=== PATIENT | female | born 1945 | race Caucasian/White ===

== ENCOUNTER 2017-11-20 16:10 | Emergency (ER) | payer MEDICARE ==
[2017-11-20 16:12] VITALS: BP 145/64; PULSE 71; RESP 14; TEMP 97.8; O2SAT 100
[2017-11-20] MEDS ORDERED: SULF500EC PO (17:06)
[2017-11-20] MEDS ORDERED: TOPA50TA7 PO (17:06)
[2017-11-20] MEDS ORDERED: PAME25CA PO (17:06)
[2017-11-20] MEDS ORDERED: MAGN500T2 PO (17:06)
[2017-11-20] MEDS ORDERED: ESTR0.5T3 PO (17:06)
[2017-11-20] MEDS ORDERED: LEVO.05 PO (17:06)
[2017-11-20] MEDS ORDERED: FOSA70TA PO (17:06)
[2017-11-20] MEDS ORDERED: BIOTCAP PO (17:06)
[2017-11-20] MEDS ORDERED: LISI10TA3 PO (17:06)
[2017-11-20] MEDS ORDERED: OMEP40CA2 (17:06)
[2017-11-20] MEDS ORDERED: NAPR500 PO (17:06)
[2017-11-20] MEDS ORDERED: METR1GEL2 (17:06)
[2017-11-20] MEDS ORDERED: CHLO25TA2 PO (17:06)
[2017-11-20] MEDS ORDERED: FISHCAP4 PO (17:06)
--- NOTE | 2017-11-20 17:15 | RADRPT ---
EXAM DATE/TIME: 11/20/2017 16:41 [facility] COMPARISON: No previous studies available for comparison. INDICATIONS : Left foot pain after fall off step. MEDICAL HISTORY : None. SURGICAL HISTORY : Left ankle ORIF. ENCOUNTER: Initial ACUITY: 1 day PAIN SCORE: 10/10 LOCATION: Left foot, 1st and 2nd digits. FINDINGS: Plate with screws is seen bridging the fracture of the medial or lateral malleolus. Alignment anatom ic. Fracture base of the fifth metatarsals noted. CONCLUSION: Nondisplaced fracture base of the fifth metatarsal. Previous ORIF medial and lateral malleolus. Luis Cadena MD FACR on November 20, 2017 at 17:12 Board Certified Radiologist. This report was verified electronically.
--- NOTE | 2017-11-20 17:30 | PD ---
HPI Chief Complaint: Injury Time Seen by Provider: 17:19 Travel History International Travel<30 days: No Contact w/Intl Traveler<30days: No Traveled to known affect area: No History of Present Illness HPI 71-year-old female presents for evaluation of left foot pain. Prior to arrival the patient reports that she "missed a step" when stepping out of her RV and she fell on the ground. She is complaining of pain to the proximal left fifth metatarsal region of her foot. Pain is aching and worse with movement or palpation. She denies any other injuries and she has no other complaints at this time. PFSH Past Medical History Cardiovascular Problems: Yes Social History Alcohol Use: Yes Tobacco Use: No Allergies-Medications (Allergen,Severity, Reaction): Coded Allergies: meperidine (Verified Allergy, Severe, 11/20/17) promethazine (Verified Allergy, Severe, 11/20/17) camphor (Verified Adverse Reaction, Severe, Nausea/Vomiting, 11/20/17) codeine (Verified Adverse Reaction, Severe, Nausea/Vomiting, 11/20/17) eucalyptus (Verified Adverse Reaction, Severe, Nausea/Vomiting, 11/20/17) menthol (Verified Adverse Reaction, Severe, Nausea/Vomiting, 11/20/17) petrolatum,white (Verified Adverse Reaction, Severe, Nausea/Vomiting, 11/20) turpentine oil (Verified Adverse Reaction, Severe, Nausea/Vomiting, ) Reported Meds & Prescriptions Reported Meds & Active Scripts Active Reported Magnesium Oxide 500 Mg Tab 500 Mg PO DAILY Biotin 5 Mg Cap 5 Mg PO Fish Oil + D3 (Fish Oil-Cholecalciferol) 1,200-1,000 Mg-Unit Cap 1 Cap PO DAILY Fosamax (Alendronate Sodium) 70 Mg Tab 70 Mg PO Q7D Omeprazole 40 Mg Cap 40 Mg DAILY Pamelor (Nortriptyline HCl) 25 Mg Cap 25 Mg PO HS Naprosyn (Naproxen) 500 Mg Tab 500 Mg PO DIRECTED Topamax (Topiramate) 50 Mg Tab 50 Mg PO BID Metrogel (Metronidazole) 1 % Gel..gram. Lisinopril 10 Mg Tab 10 Mg PO DAILY Chlorthalidone 25 Mg Tab 12.5 Mg PO DAILY Azulfidine En-Tabs (Sulfasalazine) 500 Mg Tab 500 Mg PO BID Estrace (Estradiol) 0.5 Mg Tab 0.5 Mg PO EVERY OTHER DAY Synthroid (Levothyroxine Sodium) 50 Mcg Tab 50 Mcg PO DAILY Review of Systems Musculoskeletal: Positive: Pain Skin: Positive Other (denies open wounds) Physical Exam Narrative GENERAL: Well-developed well-nourished female in no acute distress SKIN: Warm and dry. HEAD: Atraumatic. Normocephalic. CARDIOVASCULAR: Regular rate and rhythm. No murmur appreciated. RESPIRATORY: No accessory muscle use. Clear to auscultation. Breath sounds equal bilaterally. MUSCULOSKELETAL: Tender to palpation proximal left fifth metatarsal. No bruising or soft tissue swelling. There is pain with dorsi and plantar flexion of the left foot. NEUROLOGICAL: Awake and alert. No obvious cranial nerve deficits. Motor grossly within normal limits. Normal speech. Data Data Last Documented VS Vital Signs Date Time Temp Pulse Resp B/P (MAP) Pulse Ox O2 Delivery O2 Flow Rate FiO2 11/20/17 16:12 97.8 71 14 145/64 (91) 100 Orders Orders Foot, Complete ([id number]) (11/20/17 ) Ed Discharge Order (11/20/17 17:26) Splint Or Brace Apply/Monitor (11/20/17 17:26) Crutches (11/20/17 17:26) MDM Medical Decision Making Medical Screen Exam Complete: Yes Emergency Medical Condition: Yes Medical Record Reviewed: Yes Differential Diagnosis Foot fracture, contusion, sprain Narrative Course X-ray imaging of the left foot reveals CONCLUSION: Nondisplaced fracture base of the fifth metatarsal. Previous ORIF medial and lateral malleolus. The patient will be placed in a posterior short leg splint and provided crutches. She is from [place], plans on returning home at the end of November. She will be referred to a local transportation engineering technician for follow-up. Diagnosis Primary Impression: Fracture of fifth metatarsal bone of left foot Referrals: Elle Manuel DPM Additional Instructions: Follow-up with a transportation engineering technician such as Dr. Manuel in the next week, call to make an appointment. Nonweightbearing left foot. Do not remove the splint. Tylenol or Motrin for pain. Return for any emergent medical conditions. Med/Other Pt SpecificInfo: Orthopedic Instructions Disposition: 01 DISCHARGE HOME Condition: Stable Sourav Santanay P. PA Nov 20, 2017 17:30
[2017-11-20] MEDS ORDERED: IBUP-232 PO (17:58)
[2017-11-20] MEDS ORDERED: IBUPROFEN 600 MG TAB PO ONE (18:00)
== END 2017-11-20 18:31 | disposition home or self-care (01) ==
LOC: NEPK 16:10
DX: S92.352A Displaced fracture of fifth metatarsal bone, left foot, initial encounter for closed fracture (principal); W10.8XXA Fall (on) (from) other stairs and steps, initial encounter; Z88.5 Allergy status to narcotic agent; Z88.8 Allergy status to other drugs, medicaments and biological substances; Z91.048 Other nonmedicinal substance allergy status
CPT/HCPCS: 29515; 73630; 99283; E0113

== ENCOUNTER 2017-11-23 18:32 | Emergency (ER) | payer MEDICARE ==
[~2017-11-23] VITALS: Ht 167.6 cm; Wt 69.5 kg
[~2017-11-23 18:32] MED LIST: BIOTCAP PO; CHLO25TA2 PO; ESTR0.5T3 PO; FISHCAP4 PO; FOSA70TA PO; IBUP-232 PO; LEVO.05 PO; LISI10TA3 PO; MAGN500T2 PO; METR1GEL2; NAPR500 PO; OMEP40CA2; PAME25CA PO; SULF500EC PO; TOPA50TA7 PO
[2017-11-23 18:36] VITALS: BP 143/69; PULSE 92; RESP 18; TEMP 98.2; O2SAT 99
[2017-11-23] MEDS ORDERED: CALC1TAB87 PO (20:55)
[2017-11-23] MEDS ORDERED: MULTTAB67 PO (20:55)
[2017-11-23] MEDS ORDERED: SULI200T PO (20:55)
[2017-11-23] MEDS ORDERED: ZANA4CAP PO (20:55)
[2017-11-23] MEDS ORDERED: MAGN500T2 PO (20:55)
[2017-11-23] MEDS ORDERED: SODIUM CHLORIDE 0.9% FLUSH 10 ML FLUSH IVF PRN (21:15)
--- NOTE | 2017-11-23 21:29 | PD ---
HPI Chief Complaint: Pain: Acute or Chronic Time Seen by Provider: 21:01 Travel History International Travel<30 days: No Contact w/Intl Traveler<30days: No Traveled to known affect area: No History of Present Illness HPI 71-year-old female with PMH of HTN presents to the ED for evaluation of sudden onset electrical shock type pain radiating into bilateral upper extremities. Patient states that she was looking up at some friends who were on a amusement ride when the pain started. She states that it's been intermittent throughout the course of the day but she can identify no particular exacerbating motions. She endorses history of chronic headaches. On presentation she denies headache , dizziness, neck pain, chest pain, palpitations, shortness of breath, abdominal pain, nausea, vomiting. She endorses fall from her RV a few days ago in which she broke the fifth metatarsal. She states that she landed on her hands and knees and denies any injury to the neck. 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 She states that she had a CT at the time that is unsure of any results. PFSH Past Medical History Arthritis: Yes Cardiovascular Problems: Yes (HTN) Hypertension: Yes Thyroid Disease: Yes Tetanus Vaccination: < 5 Years Influenza Vaccination: Yes ?: Not Past Surgical History Genitourinary Surgery: Yes (vaginal sling) Hysterectomy: Yes Social History Alcohol Use: Yes (Socially) Tobacco Use: No Substance Use: No Allergies-Medications (Allergen,Severity, Reaction): Coded Allergies: meperidine (Verified Allergy, Severe, 11/20/17) promethazine (Verified Allergy, Severe, 11/20/17) camphor (Verified Adverse Reaction, Severe, Nausea/Vomiting, 11/20/17) codeine (Verified Adverse Reaction, Severe, Nausea/Vomiting, 11/20/17) eucalyptus (Verified Adverse Reaction, Severe, Nausea/Vomiting, 11/20/17) menthol (Verified Adverse Reaction, Severe, Nausea/Vomiting, 11/20/17) petrolatum,white (Verified Adverse Reaction, Severe, Nausea/Vomiting, 11/20) turpentine oil (Verified Adverse Reaction, Severe, Nausea/Vomiting, ) Reported Meds & Prescriptions Reported Meds & Active Scripts Active Prednisone 20 Mg Tab 20 Mg PO BID Gabapentin 300 Mg Cap 300 Mg PO BID Ibuprofen 600 Mg Tab 600 Mg PO Q6H PRN Reported Sulindac 200 Mg Tab 200 Mg PO BID Magnesium Oxide 500 Mg Tab 500 Mg PO DAILY Multiple Vitamin 1 Tab 1 Tab PO DAILY Calcium 600 with Vitamin D (Calcium Carbonate-Cholecalciferol) 600-400 mg-Unit Tab 1 Tab PO DAILY Zanaflex (Tizanidine HCl) 4 Mg Cap 4 Mg PO Magnesium Oxide 500 Mg Tab 500 Mg PO DAILY Biotin 5 Mg Cap 5 Mg PO Fish Oil + D3 (Fish Oil-Cholecalciferol) 1,200-1,000 Mg-Unit Cap 1 Cap PO DAILY Fosamax (Alendronate Sodium) 70 Mg Tab 70 Mg PO Q7D Omeprazole 40 Mg Cap 40 Mg DAILY Pamelor (Nortriptyline HCl) 25 Mg Cap 25 Mg PO HS Naprosyn (Naproxen) 500 Mg Tab 500 Mg PO DIRECTED Topamax (Topiramate) 50 Mg Tab 50 Mg PO BID Metrogel (Metronidazole) 1 % Gel..gram. Lisinopril 10 Mg Tab 10 Mg PO DAILY Chlorthalidone 25 Mg Tab 12.5 Mg PO DAILY Azulfidine En-Tabs (Sulfasalazine) 500 Mg Tab 500 Mg PO BID Estrace (Estradiol) 0.5 Mg Tab 0.5 Mg PO EVERY OTHER DAY Synthroid (Levothyroxine Sodium) 50 Mcg Tab 50 Mcg PO DAILY Review of Systems Except as stated in HPI: all other systems reviewed are Neg Physical Exam Narrative GENERAL: Well-nourished, well-developed white female in no acute distress. SKIN: Focused skin assessment warm/dry. HEAD: Normocephalic. EYES: No scleral icterus. No injection or drainage. NECK: Supple, trachea midline. No JVD or lymphadenopathy. Extension and flexion of the neck elicits the same pain she complains of. CARDIOVASCULAR: Regular rate and rhythm without murmurs, gallops, or rubs. RESPIRATORY: Breath sounds equal bilaterally. No accessory muscle use. GASTROINTESTINAL: Abdomen soft, non-tender, nondistended. MUSCULOSKELETAL: No cyanosis, or edema. Equal strength in the bilateral upper extremities. Tinel's test negative. BACK: Nontender without obvious deformity. No CVA tenderness. Data Data Last Documented VS Vital Signs Date Time Temp Pulse Resp B/P (MAP) Pulse Ox O2 Delivery O2 Flow Rate FiO2 2/15/18 22:50 97 18 103/56 (72) 98 Room Air 11/23/17 18:[address] Cerv Spine W/O Contrast (11/23/17 21:01) Basic Metabolic Panel (Bmp) (11/23/17 21:14) Ckmb (Isoenzyme) Profile (11/23/17 21:14) Complete Blood Count With Diff (11/23/17 21:14) Magnesium (Mg) (11/23/17 21:14) Prothrombin Time / Inr (Pt) (11/23/17 21:14) Act Partial Throm Time (Ptt) (11/23/17 21:14) Troponin I (11/23/17 21:14) Chest, Single Ap (11/23/17 21:14) Ecg Monitoring (11/23/17 21:14) Bilateral Bp Monitoring (11/23/17 21:14) Iv Access Insert/Monitor (11/23/17 21:14) Oximetry (11/23/17 21:14) Sodium Chloride 0.9% Flush (Ns Flush) (11/23/17 21:15) Electrocardiogram (11/23/17 20:57) CKMB (11/23/17 21:20) CKMB% (11/23/17 21:20) Radiology Film Requests (11/23/17 ) Gabapentin (Neurontin) (11/23/17 22:45) Prednisone (Deltasone) (11/23/17 22:45) Ed Discharge Order (11/23/17 22:36) Labs Laboratory Tests Test 11/23/17 21:20 White Blood Count 5.8 TH/MM3 Red Blood Count 4.16 MIL/MM3 Hemoglobin 12.6 GM/DL Hematocrit 36.5 % Mean Corpuscular Volume 87.8 FL Mean Corpuscular Hemoglobin 30.3 PG Mean Corpuscular Hemoglobin Concent 34.5 % Red Cell Distribution Width 13.7 % Platelet Count 238 TH/MM3 Mean Platelet Volume 8.0 FL Neutrophils (%) (Auto) 63.8 % Lymphocytes (%) (Auto) 26.7 % Monocytes (%) (Auto) 7.2 % Eosinophils (%) (Auto) 1.5 % Basophils (%) (Auto) 0.8 % Neutrophils # (Auto) 3.7 TH/MM3 Lymphocytes # (Auto) 1.6 TH/MM3 Monocytes # (Auto) 0.4 TH/MM3 Eosinophils # (Auto) 0.1 TH/MM3 Basophils # (Auto) 0.0 TH/MM3 CBC Comment DIFF FINAL Differential Comment Prothrombin Time 10.1 SEC Prothromb Time International Ratio 1.0 RATIO Activated Partial Thromboplast Time 28.5 SEC Blood Urea Nitrogen 22 MG/DL Creatinine 0.97 MG/DL Random Glucose 96 MG/DL Calcium Level 9.4 MG/DL Magnesium Level 1.9 MG/DL Sodium Level 141 MEQ/L Potassium Level 3.4 MEQ/L Chloride Level 105 MEQ/L Carbon Dioxide Level 28.7 MEQ/L Anion Gap 7 MEQ/L Estimat Glomerular Filtration Rate 57 ML/MIN Total Creatine Kinase 171 U/L Creatine Kinase MB 1.9 NG/ML Troponin I LESS THAN 0.02 NG/ML MDM Medical Decision Making Medical Screen Exam Complete: Yes Emergency Medical Condition: Yes Differential Diagnosis Cervical radiculopathy versus muscle strain versus degenerative disc disease versus herniated disc versus less likely cardiac origin versus other Narrative Course 71-year-old female with PMH of HTN presents to the ED for evaluation of sudden onset electrical shock type pain radiating into bilateral upper extremities. Endorses a fall from her RV a few days ago, landing on her hands and knees. 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 No red flag symptoms reported. On exam she has positive midline tenderness of the neck and the same electrical pain is elicited with flexion and extension. Signs and symptoms are suspicious for radiculopathy. 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 I offered the patient pain medications which she declines at this time. EKG with no acute changes. CXR no acute findings. Troponin negative 1. CBC, CMP, coags unremarkable. CT of the cervical spine reveals no acute fracture or subluxation. There is moderate to severe focal canal stenosis at C6/7 secondary to partially calcified disc protrusion and dorsal dural calcifications. I discussed the results of the workup with the patient and her family. She is visiting from [place] and was provided a copy of the CT on CD. She should follow- up with the neurosurgeon on return home. She is prescribed a short course of prednisone and gabapentin, first doses administered in the ED. We discussed reasons to return to the ED. The patient is stable and discharged home. Diagnosis Primary Impression: Cervical radiculopathy at C7 Additional Impression: Cervical radiculopathy at C6 Referrals: Neurosurgeon Patient Instructions: Cervical Radiculopathy (ED), General Instructions Additional Instructions: Rest, hydrate. Return to normal, gentle activities as tolerated. Take prednisone and gabapentin as they're prescribed. Tampax applied to the neck 10:15 minutes at a time may also help to reduce her symptoms. Follow-up with the neurologist as discussed. Return to the ED for worsening symptoms or any urgent or emergent medical condition. Med/Other Pt SpecificInfo: Prescription(s) given Scripts Prednisone (Prednisone) 20 Mg Tab 20 MG PO BID, #10 TAB 0 Refills Prov: Brett Morfin MD 11/23/17 Gabapentin (Gabapentin) 300 Mg Cap 300 MG PO BID, #60 CAP 0 Refills Prov: Brett Morfin MD 11/23/17 Disposition: 01 DISCHARGE HOME Condition: Stable Magali Krishnamurthy Nov 23, 2017 21:29
[2017-11-23 21:46] LABS: AUTOMATED NEUTROPHIL # 3.7 TH/MM3 (1.8-7.7); BASOPHIL % 0.8 % (0.0-2.0); EOSINOPHIL # 0.1 TH/MM3 (0-0.4); EOSINOPHIL % 1.5 % (0.0-4.0); HEMATOCRIT 36.5 % (35.0-46.0); HEMOGLOBIN 12.6 GM/DL (11.6-15.3); LYMPH % 26.7 % (9.0-44.0); LYMPHOCYTE # 1.6 TH/MM3 (1.0-4.8); MEAN CELL VOLUME 87.8 FL (80.0-100.0); MEAN CORPUSCULAR HEMOGLOBIN 30.3 PG (27.0-34.0); MEAN CORPUSCULAR HGB CONC 34.5 % (32.0-36.0); MONO % 7.2 % (0.0-8.0); MONOCYTE # 0.4 TH/MM3 (0-0.9); NEUT % 63.8 % (16.0-70.0); PLATELET COUNT 238 TH/MM3 (150-450); RED BLOOD COUNT 4.16 MIL/MM3 (4.00-5.30); RED CELL DISTRIBUTION WIDTH 13.7 % (11.6-17.2); WHITE BLOOD COUNT 5.8 TH/MM3 (4.0-11.0)
--- NOTE | 2017-11-23 22:01 | RADRPT ---
EXAM DATE/TIME: 11/23/2017 21:38 [facility] COMPARISON: No previous studies available for comparison. INDICATIONS : Bilateral arm pain. Radiculopathy. RADIATION DOSE: 19.56 CTDIvol (mGy) MEDICAL HISTORY : Hypertension. SURGICAL HISTORY : None. ENCOUNTER: Initial ACUITY: 1 day PAIN SCALE: 8/10 LOCATION: Bilateral arms TECHNIQUE: Volumetric scanning of the cervical spine was performed. Multiplanar reconstructions in the sagittal, coronal and oblique axial planes were performed. Using automated exposure control and adjustment o f the mA and/or kV according to patient size, radiation dose was kept as low as reasonably achievable to obtain optimal diagnostic quality images. DICOM format image data is available electronically f or review and comparison. FINDINGS: VERTEBRAE: Normal vertebral body height. ALIGNMENT: No evidence of subluxation. C2-C3: The bony spinal canal is normal in size. No evidence of disc bulge or herniation. The neural forami na are bilaterally patent. C3-C4: The bony spinal canal is normal in size. No evidence of disc bulge or herniation. The neural forami na are bilaterally patent. C4-C5: The bony spinal canal is normal in size. No evidence of disc bulge or herniation. The neural forami na are bilaterally patent. C5-C6: The bony spinal canal is normal in size. No evidence of disc bulge or herniation. The neural forami na are bilaterally patent. C6-C7: Moderate to severe focal canal stenosis at C6-7 secondary to calcified disc protrusion and dorsal can al calcifications. C7-T1: The bony spinal canal is normal in size. No evidence of disc bulge or herniation. The neural forami na are bilaterally patent. CONCLUSION: 1. No acute fracture or subluxation. Moderate to severe focal canal stenosis at C6-7 secondary to par tially calcified disc protrusion and dorsal dural calcifications. Carlitos Soliman MD on November 23, 2017 at 21:56 Board Certified Radiologist. This report was verified electronically.
[2017-11-23 22:07] LABS: BICARBONATE 28.7 MEQ/L (21.0-32.0); BLOOD UREA NITROGEN 22 MG/DL (7-18); CALCIUM 9.4 MG/DL (8.5-10.1); CHLORIDE 105 MEQ/L (98-107); CREATININE 0.97 MG/DL (0.50-1.00); GLOMERULAR FILTRATION RATE 57 ML/MIN (>89); GLUCOSE,RANDOM 96 MG/DL (74-106); MAGNESIUM 1.9 MG/DL (1.5-2.5); SODIUM (NA) 141 MEQ/L (136-145)
[2017-11-23 22:10] LABS: PROTHROMBIN TIME - PATIENT 10.1 SEC (9.8-11.6)
[2017-11-23 22:12] LABS: TROPONIN I LESS THAN 0.02 NG/ML (0.02-0.05)
--- NOTE | 2017-11-23 22:32 | RADRPT ---
EXAM DATE/TIME: 11/23/2017 21:52 [facility] COMPARISON: No previous studies available for comparison. INDICATIONS : Chest pain and tingling down arms. MEDICAL HISTORY : Hypertension. SURGICAL HISTORY : Hysterectomy. ENCOUNTER: Initial ACUITY: 1 day PAIN SCORE: 4/10 LOCATION: Bilateral chest FINDINGS: A single view of the chest demonstrates the lungs to be symmetrically aerated without evidence of mas s, infiltrate or effusion. The cardiomediastinal contours are unremarkable. Osseous structures are intact. CONCLUSION: 1. No acute findings. Calcified granuloma right lung base. Carlitos Soliman MD on November 23, 2017 at 22:30 Board Certified Radiologist. This report was verified electronically.
[2017-11-23] MEDS ORDERED: PRED20 PO (22:35)
[2017-11-23] MEDS ORDERED: GABA300C5 PO (22:35)
[2017-11-23] MEDS ORDERED: predniSONE 20 MG TAB PO ONE (22:45)
[2017-11-23] MEDS ORDERED: GABAPENTIN 300 MG CAP PO ONE (22:45)
[2017-11-23 22:50] VITALS: BP 103/56; PULSE 97; RESP 18; O2SAT 98
--- NOTE | 2017-11-25 00:25 | EKG ---
Date Performed: 11/23/2017 Time Performed: 20:57:22 PTAGE: 71 years EKG: Sinus rhythm NORMAL ECG PREVIOUS TRACING : 11/21/2017 07.07 DOCTOR: Sena Barragan Interpretating Date/Time 11/25/2017 00:23:55
== END 2017-11-23 22:55 | disposition home or self-care (01) ==
LOC: NEPE 18:32
DX: M50.123 Cervical disc disorder at C6-C7 level with radiculopathy (principal); R51 Headache; G89.29 Other chronic pain; I10 Essential (primary) hypertension; Z79.899 Other long term (current) drug therapy
CPT/HCPCS: 71045; 72125; 80048; 82550; 82552; 83735; 84484; 85025; 85610; 85730; 93005; 99285; J7512